=== PATIENT | female | born 1975 | race Caucasian/White ===

== ENCOUNTER → 2018-07-04 | Outpatient (CLI) | payer BC | END | disposition home or self-care (01) | LOC: M.RAD 09:46 | DX: N63.21 Unspecified lump in the left breast, upper outer quadrant (principal); R92.1 Mammographic calcification found on diagnostic imaging of breast ==

== ENCOUNTER → 2019-01-03 | Outpatient (CLI) | payer BC | LOC: M.RAD 09:42 | DX: N63.20 Unspecified lump in the left breast, unspecified quadrant (principal); R92.8 Other abnormal and inconclusive findings on diagnostic imaging of breast ==

== ENCOUNTER → 2019-03-30 | Day surgery (SDC) | payer BC ==
[~2019-03-30] MED LIST: COQ-10100 MG PO; GLUCOPHAGE XR750 MG PO; HYDROCODON-ACE1 EAC7 PO; LIPITOR10 MG PO; SINGULAIR 10 MG10 M1 PO
--- NOTE | ~2019-03-30 | OP ---
[address] [address] OPERATIVE REPORT Name: NASIR GARCIAH ANN Room: [facility].#: [id number] Admission: 03/30/19 Attend Phys: Mark Bangura DPM Discharge: Date of : 73 Report #: [id number] THIS REPORT FOR: //name// CC: Mark Person DATE OF SERVICE: 03/30/2019 SURGEON: Mark Bangura DPM. PREOPERATIVE DIAGNOSIS: Hallux valgus deformity of the right foot. POSTOPERATIVE DIAGNOSIS: Hallux valgus deformity of the right foot. PROCEDURE: Dustin bunionectomy, right foot. ANESTHESIA: IV sedation, local infiltration. HEMOSTASIS: Ankle tourniquet. DESCRIPTION OF PROCEDURE: The patient was placed on the operating table in supine position. Pneumatic ankle tourniquet was placed around the right ankle. Anesthesia was obtained with the use of 1% lidocaine plain and 0.5% Marcaine plain infiltrated in a 50:50 mixture around the base of the first metatarsal of the right foot. The right foot and ankle were prepped and draped in the usual sterile manner. The limb was exsanguinated. Pneumatic ankle tourniquet was inflated to 250 mmHg on the OR table. Attention was directed to the dorsal medial aspect of the first MPJ, where a dorsal linear incision was placed medial to and parallel to the extensor hallucis longus tendon. This incision was deepened in the same plane using blunt and sharp dissection, paying careful attention to all bleeders, which were clamped and cauterized as necessary, deep until the level of tendon capsule. Attention was directed to the first interspace, where the adductor hallucis was identified and transected. Lateral capsulotomy was performed. Fibular sesamoid ligament was sharply incised and transected as well as the extensor hallucis brevis tendon. Attention was directed back to the dorsal aspect of the first MPJ, where a dorsal linear capsulotomy was performed with sharp dissection. All soft tissues were freed and retracted from that first metatarsal, thus presenting the hypertrophied medial eminence into the wound. With the use of spinal instrumentation, the hypertrophied medial eminence was resected and removed in toto. At this time, a transpositional V osteotomy was performed at the head of the first metatarsal apex projecting distally [place] [address] OPERATIVE REPORT Name: ANATOLY GARCIA Room: [facility]#: [id number] Admission: 03/30/19 Attend Phys: Mark Bangura DPM Discharge: Date of : 73 Report #: [id number] angle of about 60 degrees between them. The capital fragment was displaced laterally into its corrected position and fixated with the use of a 16-mm 3.0 cannulated screw. Excellent fixation being noted, resulting medial eminence was also resected and removed in toto and rasped smooth. There was some dorsal spurring on the first metatarsal head, which was burred with a sharp power bur. We removed the power bur. The wound was then copiously lavaged with normal sterile saline solution. Capsular structures were reapproximated with use of 3-0 Vicryl in simple interrupted fashion. Subcutaneous tissues were reapproximated using 4-0 Vicryl horizontal mattress fashion. Skin edges stripped coapted using 4-0 Prolene in subcuticular-type fashion. Wound was dressed with Adaptic, dry sterile gauze and Malorie. Pneumatic ankle tourniquet was deflated and normal hyperemic flush noted to return to all digits of the right foot. The patient will follow up in my office on Wednesday. By: 1138 [id number] Bangura DPM /elizabeth
[2019-03-30 08:21] LABS: HEMATOCRIT 39.6 % (37.0-47.0); HEMOGLOBIN 13.5 gm/dL (12.0-15.0)
--- NOTE | 2019-03-30 11:36 | EKG ---
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1975 Requested By: Mark Bangura Order Number: [id number] Reading MD: Eddie Patel Measurements Intervals [place] Rate: 68 P: 34 [place]: 184 QRS: 3 QRSD: 97 T: -10 QT: 412 QTc: 439 Interpretive Statements Sinus rhythm Low voltage, precordial leads Probable left ventricular hypertrophy Borderline T abnormalities, inferior leads No previous ECG available for comparison Electronically Signed On 03-30-2019 11:36:33 CDT by Eddie Patel [email or web address] <ELECTRONICALLY SIGNED> By: Eddie Patel MD, [facility] 03/30/19 1136 8 8 Eddie Patel MD, [facility] /EPI
== END | disposition home or self-care (01) ==
LOC: M.SUR 06:37
PROVIDERS: Podiatrist Foot Surgery
DX: M20.11 Hallux valgus (acquired), right foot (principal); E11.9 Type 2 diabetes mellitus without complications; Z88.8 Allergy status to other drugs, medicaments and biological substances; Z79.899 Other long term (current) drug therapy; Z79.84 Long term (current) use of oral hypoglycemic drugs